=== PATIENT | male | born 1995 | race Caucasian/White ===

== ENCOUNTER 2021-02-18 09:00 | Emergency (ER) | payer SELFPAY ==
[2021-02-18 10:00] VITALS: BP 144/80; PULSE 79; TEMP 98; BMI 30.1
[2021-02-18] MEDS ORDERED: IBUPROFEN 600 MG TABLET (FP) PO ONE ×2 (10:31→10:33)
== END 2021-02-18 11:27 | disposition home or self-care (01) ==
LOC: JERFT 09:00
DX: S83.411A Sprain of medial collateral ligament of right knee, initial encounter (principal); X50.9XXA Other and unspecified overexertion or strenuous movements or postures, initial encounter
CPT/HCPCS: 73562-TC-RT-FY; 99283-25